=== PATIENT | female | born 1955 | race Caucasian/White ===

== ENCOUNTER 2019-05-22 12:03 | Observation (INO) ==
[2019-05-22] MEDS ORDERED: NORMAL SALINE 1,000 ML IV ONE (12:26)
[2019-05-22] MEDS ORDERED: PANTOPRAZOLE SODIUM 40 MG/100 ML PIGGYBACK IV ONE (12:27)
[2019-05-22] MEDS ORDERED: ONDANSETRON HCL/PF 2 MG/ML VIAL IV ONE (12:27)
--- NOTE | 2019-05-22 12:34 | ERNOTE ---
Abdominal HPI - Narrative Date of Service: 05/22/19 - General Chief Complaint: Abdominal Pain Time Seen by Provider: 05/22/19 12:20 Source: patient, family Exam Limitations: no limitations - Immun/Allergies/Home Medications Immunizatons: IMMUNIZATION HX Immunizations Up to Date Yes History of Influenza Vaccine No Hx Pneumococcal Vaccination No Allergies/Adverse Reactions: Allergies No Known Allergies Allergy (Verified 05/22/19 12:12) Home Medications: HOME MEDICATIONS Aspirin 81 mg PO DAILY 03/07/18 [Last Taken Unknown] Atorvastatin Calcium 40 mg PO HS 03/07/18 [Last Taken Unknown] Metoprolol Succinate 25 mg PO DAILY 03/07/18 [Last Taken Unknown] - History of Present Illness Narrative: patient presents to ed with c/o acute onset this am of epigastric and upper left quadrant pain, has had episodes of this in past but usually lasts only a few minutes Timing: intermittent Quality: moderate, sharpness Activities at Onset: none Modifying Factors - (Improves): Present: other - nothing Modifying Factors - (Worsens): Present: other - nothing Associated Symptoms: Present: nausea, vomiting, loss of appetite Prior Abdominal Problems: Present: similar symptoms Review of Systems - Review of Systems Constitutional: Present: See HPI EYE: Present: no symptoms reported ENT: Present: no symptoms reported Respiratory: Present: no symptoms reported Cardiology: Present: no symptoms reported Gastrointestinal/Abdominal: Present: See HPI, nausea, abdominal pain, eating less, drinking less Genitourinary: Present: no symptoms reported Musculoskeletal: Present: no symptoms reported Skin: Present: no symptoms reported Neurological: Present: no symptoms reported Endocrine: Present: no symptoms reported Hematologic/Lymphatic: Present: no symptoms reported Psych: Present: no symptoms reported All Other Systems: All systems neg except as marked Medical History (Last Reviewed 05/22/19 @ 12:13 by Carline Comer RN) HLD (hyperlipidemia) HTN (hypertension) Surgical History: Surgical History (Last Updated 05/22/19 @ 12:31 by Judy Campos RN) H/O heart artery stent dr lowe Hx of tubal ligation Family History: Family History (Last Updated 05/22/19 @ 12:32 by Judy Campos RN) Other No pertinent family history Social History: (Last Updated 05/22/19 @ 12:13 by Carline Comer RN) Tobacco: Smoking Status: Never smoker Alcohol: alcohol intake: current alcohol intake frequency: holiday/special occasion Substance Use: substance use type: does not use Physical Exam - Physical Exam General Appearance: Present: moderate distress, anxious Head Exam: Present: normal inspection, no evidence of injury Eye Exam: Normal inspection: bilateral, PERRL: bilateral, EOMI: bilateral Ears, Nose, Throat: Present: normal ENT inspection, normal pharynx Neck: Present: normal inspection, nontender Respiratory: Present: no respiratory distress, normal breath sounds, no accessory muscle use, chest nontender, lungs clear Cardiovascular/Chest: Present: regular rate, rhythm, no murmur, normal periph eral pulses Gastrointestinal/Abdominal: Present: normal bowel sounds, tenderness, distended, other - tenderness most noted in upper left quadrant and epigastric region Back Exam: Present: normal inspection, normal range of motion, no CVA tenderness, no vertebral tenderness Extremity Exam: Present: normal inspection, non-tender, normal range of motion, no edema Neurological Exam: Present: alert, oriented, normal mood/affect, no motor/sensory deficits Skin Exam: Present: normal color, warm/dry Lymphatic Exam: Present: no adenopathy Progress - Date and Time Seen: Date and Time: 05/22/19 17:46 patient unchanged, case discussed with patient and dr rueda who evaluates patient to go to surgery for repair of incarcerated ventral hernia - Results and Orders Patient's Lab Results:: I have reviewed the patient's lab results. - Vital Signs Patient's Vital Signs:: I have reviewed the patient's vital signs. Vital Signs: Vital Signs 05/22/19 12:08 Temperature 35.9 C L Pulse Rate 86 Respiratory Rate 20 Blood Pressure 142/70 O2 Sat by Pulse Oximetry 93 - X-Ray X-Ray #1 X-Ray: abdomen Interpretation: Discd w/ radiologist - non specific bowel gas [id number], suspect bowel obstruction - CT/Ultrasound CT/Ultrasound Narrative: incarcerated ventral hernia - Progress/Reassessment Chief Complaint: Abdominal Pain Progress:: Unchanged - Transfer of Care Expected Disposition: Admit Plan - Plan Plan: to admit and go to surgery Departure Clinical Impression: Ventral hernia with bowel obstruction - Departure Disposition: Short Term Hospital Inpatient Condition: Serious
[2019-05-22 12:41] LABS: Hematocrit 38.5 % (37.0-47.0); Mean Cell Volume 91.4 fl (78-100); Mean Corpuscular Hemoglobin 30.9 pg (27-31); Mean Corpuscular Hgb Conc 33.8 g/dl (32-36); Mean Platelet Volume 9.9 fl (8-12.5); Neutrophil # 3.9 K/mm3 (1.3-6.0); Neutrophil % 66.1 % (42-75.0); Platelet Count 303 K/mm3 (150-450); Red Blood Count 4.21 M/mm3 (4.2-5.4)
[2019-05-22] MEDS: MORPHINE SULFATE 4 MG/ML SYRG IV ONE ×2 (12:44→13:01)
[2019-05-22 12:53] LABS: Anion Gap 12.3 mmol/L (6.8-13.8); BUN/Creatinine Ratio 15.8 (9.0-21.6); Bilirubin, Total 0.7 mg/dL (0.0-1.1); Calcium * 9.3 mg/dL (7.9-10.9); Carbon Dioxide 24.8 mmol/L (24-32.6); Potassium 4.1 mmol/L (3.4-4.6); Total Protein 7.2 gm/dL (6.2-8.2)
[2019-05-22] MEDS ORDERED: DIATRIZOATE MEGLUMINE, SODIUM 30 ML BTL PO ONE (13:58)
[2019-05-22 14:43] LABS: Urine Bilirubin Negative (NEGATIVE); Urine Blood Negative /ul (NEGATIVE); Urine Ketone Negative (NEGATIVE); Urine Nitrite Negative (NEGATIVE); Urine Protein Negative (NEGATIVE); Urine Urobilinogen Normal (NORMAL); Urine pH 5.5 pH (5.0-7.0)
[2019-05-22 14:53] LABS: Urine Appearance Slightly Cloudy (CLEAR); Urine Bacteria 1+; Urine Color Yellow; Urine RBC None Seen /hpf (0-5); Urine WBC 0-5 /hpf (0-5)
[2019-05-22] MEDS ORDERED: MORPHINE SULFATE 4 MG/ML SYRG IV ONE (16:37)
[2019-05-22] MEDS ORDERED: BUPIVACAINE HCL/EPINEPHRINE 50 ML VIAL ONE (17:45)
[2019-05-22] MEDS ORDERED: fentaNYL CITRATE/PF 50 MCG/ML AMPUL ONE (18:16)
[2019-05-22] MEDS ORDERED: ONDANSETRON HCL/PF 2 MG/ML VIAL ONE (18:16)
[2019-05-22] MEDS ORDERED: KETOROLAC TROMETHAMINE 30 MG/ML VIAL ONE (18:16)
[2019-05-22] MEDS ORDERED: PROPOFOL VIAL IV ONE (18:17)
[2019-05-22] MEDS ORDERED: SUCCINYLCHOLINE CHLORIDE 20 MG/ML VIAL ONE (18:17)
--- NOTE | 2019-05-22 18:17 | HP ---
Chief Complaint - Chief Complaint Date of Service: 05/22/19 Time of Service: 18:00 Chief Complaint: abdominal pain History of Present Illness: At 10:15 this AM she had sudden onset of sharp pain in the upper middle abdomen. She was found to have a ventral hernia containing a loop of smalll bowel. She has normal WBC. She had a BM yesterday but no flatus today. The hernia is tender and not reducible. Medical History (Last Reviewed 05/22/19 @ 18:03 by London Etienne MD) HLD (hyperlipidemia) HTN (hypertension) Surgical History: Surgical History (Last Reviewed 05/22/19 @ 18:03 by London Etienne MD) H/O heart artery stent dr lowe Hx of tubal ligation Family History: Family History (Last Reviewed 05/22/19 @ 18:03 by London Etienne MD) Other No pertinent family history Social History: (Last Reviewed 05/22/19 @ 18:03 by London Etienne MD) Tobacco: Smoking Status: Never smoker Alcohol: alcohol intake: current alcohol intake frequency: holiday/special occasion Substance Use: substance use type: does not use Review Of Systems (GEN) - Review of Systems Generalized/Overall Review: Present: No Symptoms Reported. Absent: Chills, Fever EENTM: Absent: No Symptoms Reported Respiratory: Present: Other - snores and wakes up with it. Absent: Cough, Shortness of Breath Cardiac: Present: Other - Just saw Dr Lowe [place] for a year. Had stent about 10 yrs ago---had chest pain then but none since.. Absent: Chest Pain, Edema, Palpitations Abdominal: Present: Abdominal Pain Genitourinary: Present: Dribbling - wears a pad, Other - nocturia x 1. Absent: Dysuria Musculoskeletal: Present: No Symptoms Reported Neurological: Present: No Symptoms Reported Skin: Present: No Symptoms Reported Endocrine: Present: No Symptoms Reported Additional Comments: She has anxiety and occasional panic attacks/night terrors Immunizations: IMMUNIZATION HX Immunizations Up to Date Yes History of Influenza Vaccine No Hx Pneumococcal Vaccination No Allergies/Adverse Reactions: Allergies Allergy/AdvReac Type Severity Reaction Status Date / Time No Known Allergies Allergy Verified 05/22/19 12:12 Home Medications: HOME MEDICATIONS Aspirin 81 mg PO DAILY 03/07/18 [Last Taken Unknown] Atorvastatin Calcium 40 mg PO HS 03/07/18 [Last Taken Unknown] Metoprolol Succinate 25 mg PO DAILY 03/07/18 [Last Taken Unknown] Exam - Exam Vital Signs: Vital Signs - Last Taken Temp 35.9 C L 05/22/19 12:08 Pulse 75 05/22/19 17:44 Resp 12 05/22/19 17:44 BP 156/81 H 05/22/19 17:44 Pulse Ox 97 05/22/19 17:44 Constitutional: Present: Alert, Oriented x3, Cooperative, Mild distress, Obese ENT Exam: Present: normal ENT inspection, other - Upper dental appliance, Mallampati 3 airway Neck: Present: non-tender, full range of motion, trachea midline, other - short thick neck Back Exam: Present: no CVA tenderness Breasts: Present: Exam deferred Respiratory: Present: normal breath sounds Cardiovascular/Chest: Present: normal peripheral pulses, regular rate, rhythm, no murmur Abdomen: Present: soft, other - incarcerated ventral (epigastric) hernia. Absent: guarding, rigidity /Rectal: Present: Exam deferred Extremity: Present: normal range of motion, normal inspection, no pedal edema, no calf tenderness Skin Exam: Present: normal color, warm/dry Neurologic: Present: professional healthcare representative II-XII nml as tested, normal cerebellar test, alert, normal mood/affect, oriented x 3 Appearance: Present: appropriate appearance, appropriate insight, neat Eye contact: Present: cooperative, good eye contact, normal speech Thoughts: Present: normal thought pattern Diagnostic Studies: Abnormal Lab Results 05/22/19 05/22/19 05/22/19 Range/Units 12:35 12:35 14:39 Basophils % 1.2 H (0.0-1.0) % Est GFR (Non-Af Amer) 51 L (60-130) mL/min ALT 15 L (19-67) U/L Ur Leukocyte Esterase 75 H (NEGATIVE) /ul Urine Bacteria 1+ H (NONE) Laboratory Results WBC 6.0 K/mm3 (4.0-10.5) 05/22/19 12:35 RBC 4.21 M/mm3 (4.2-5.4) 05/22/19 12:35 Hgb 13.0 gm/dL (12.5-16.0) 05/22/19 12:35 Hct 38.5 % (37.0-47.0) 05/22/19 12:35 MCV 91.4 fl (78-100) 05/22/19 12:35 MCH 30.9 pg (27-31) 05/22/19 12:35 MCHC 33.8 g/dl (32-36) 05/22/19 12:35 RDW 13.0 % (11.5-14.0) 05/22/19 12:35 Plt Count 303 K/mm3 (150-450) 05/22/19 12:35 MPV 9.9 fl (8-12.5) 05/22/19 12:35 Immature Gran % (Auto) 0.20 % (0.001-0.429) 05/22/19 12:35 Immature Gran # (Auto) 0.01 K/mm3 (0.000-0.0310) 05/22/19 12:35 Neutrophils % 66.1 % (42-75.0) 05/22/19 12:35 Lymphocytes % 25.8 % (20-51) 05/22/19 12:35 Monocytes % 5.4 % (0.0-9) 05/22/19 12:35 Eosinophils % 1.3 % (0.0-3.0) 05/22/19 12:35 Basophils % 1.2 % (0.0-1.0) H 05/22/19 12:35 Nucleated RBC % 0.0 k/mm3 (0-1) 05/22/19 12:35 Neutrophils # 3.9 K/mm3 (1.3-6.0) 05/22/19 12:35 Lymphocytes # 1.54 k/mm3 (1.5-3.5) 05/22/19 12:35 Monocytes # 0.3 k/mm3 (0.0-1.0) 05/22/19 12:35 Eosinophils # 0.1 k/mm3 (0.0-0.7) 05/22/19 12:35 Absolute Basophils 0.1 k/mm3 (0.0-0.1) 05/22/19 12:35 Sodium 136 mmol/L (132-142) 05/22/19 12:35 Plasma Sodium 136 mmol/L (130-142) 05/22/19 12:35 Potassium 4.1 mmol/L (3.4-4.6) 05/22/19 12:35 Chloride 103 mmol/L (97-106) 05/22/19 12:35 Carbon Dioxide 24.8 mmol/L (24-32.6) 05/22/19 12:35 Anion Gap 12.3 mmol/L (6.8-13.8) 05/22/19 12:35 BUN 18 mg/dL (3-23) 05/22/19 12:35 Creatinine 1.14 mg/dL (0.4-1.4) 05/22/19 12:35 Est GFR (Non-Af Amer) 51 mL/min (60-130) L 05/22/19 12:35 BUN/Creatinine Ratio 15.8 (9.0-21.6) 05/22/19 12:35 Random Glucose 101 mg/dL (70-110) 05/22/19 12:35 Calcium 9.3 mg/dL (7.9-10.9) 05/22/19 12:35 Calcium Adj for Albumin 9.0 mg/dL (8.4-10.2) 05/22/19 12:35 Total Bilirubin 0.7 mg/dL (0.0-1.1) 05/22/19 12:35 AST 16 U/L (0-48) 05/22/19 12:35 ALT 15 U/L (19-67) L 05/22/19 12:35 Alkaline Phosphatase 109 U/L (50-170) 05/22/19 12:35 Total Protein 7.2 gm/dL (6.2-8.2) 05/22/19 12:35 Albumin 4.0 gm/dl (3.4-5.0) 05/22/19 12:35 Amylase 67 U/L (25-115) 05/22/19 12:35 Lipase 201 U/L (73-393) 05/22/19 12:35 Urine Color Yellow 05/22/19 14:39 Urine Appearance Slightly cloudy (CLEAR) 05/22/19 14:39 Urine pH 5.5 pH (5.0-7.0) 05/22/19 14:39 Ur Specific [place] 1.010 SP.GR. (1.005-1.010) 05/22/19 14:39 Urine Protein Negative mg/dL (NEGATIVE) 05/22/19 14:39 Urine Glucose (UA) Negative mg/dL (NEGATIVE) 05/22/19 14:39 Urine Ketones Negative mg/dL (NEGATIVE) 05/22/19 14:39 Urine Blood Negative /ul (NEGATIVE) 05/22/19 14:39 Urine Nitrate Negative (NEGATIVE) 05/22/19 14:39 Urine Bilirubin Negative mg/dl (NEGATIVE) 05/22/19 14:39 Urine Urobilinogen Normal EU/dl (NORMAL) 05/22/19 14:39 Ur Leukocyte Esterase 75 /ul (NEGATIVE) H 05/22/19 14:39 Urine RBC None seen /hpf (0-5) 05/22/19 14:39 Urine WBC 0-5 /hpf (0-5) 05/22/19 14:39 Ur Epithelial Cells Trace /hpf (0-5) 05/22/19 14:39 Urine Bacteria 1+ (NONE) H 05/22/19 14:39 Urine Culture Comments Culture to follow 05/22/19 14:39 CT shows ventral hernia containing small bowel Assessment/Plan - Assessment/Plan (1) Ventral hernia with bowel obstruction Assessment: Explained hernia and why she needs an operation because it is not reducible. Risks, complications explained as well as expected post-op course. Also discussed possible need to deal with bowel embarrassment if present (although lab normal). After an interactive discussion, her and her "s questions were answered to their apparent satisfaction and informed consent for repair of ventral hernia with mesh was obtained. SCD's & early ambulation, IV ancef, chlorhexidine wipes unavailable. Problem: Acute
--- NOTE | 2019-05-22 18:29 | ANES ---
Anesthesia Pre Procedure Eval Vitals/Labs: Last Vital Signs Temp 35.9 C L 05/22/19 12:08 Pulse 75 05/22/19 17:44 Resp 12 05/22/19 17:44 BP 156/81 H 05/22/19 17:44 Pulse Ox 97 05/22/19 17:44 HOME MEDICATIONS Aspirin 81 mg PO DAILY 03/07/18 [Last Taken Unknown] Atorvastatin Calcium 40 mg PO HS 03/07/18 [Last Taken Unknown] Metoprolol Succinate 25 mg PO DAILY 03/07/18 [Last Taken Unknown] Allergies/Adverse Reactions: Allergies Allergy/AdvReac Type Severity Reaction Status Date / Time No Known Allergies Allergy Verified 05/22/19 12:12 - Planned Procedure Planned Procedure: left side abd pain Medication List Reviewed:: Yes Allergies Verified: Yes Medical History (Last Reviewed 05/22/19 @ 18:28 by Jay Blum CRNA) HLD (hyperlipidemia) HTN (hypertension) Surgical History (Last Reviewed 05/22/19 @ 18:28 by Jay Blum CRNA) H/O heart artery stent dr lowe Hx of tubal ligation Family History (Last Reviewed 05/22/19 @ 18:28 by Jay Blum CRNA) Other No pertinent family history - Family Anesthesia History Family History:: no untoward family reactions to anesthesia - Airway/Neck/Teeth Teeth Condition: intact Denture Type: Perm crown/bridge Neck Exam: full range of motion Mallampatti Score: 2 Thyromental (T-M) distance: > 6 cm Mandibulo Hyoid distance: > 3 cm - Respiratory Respiratory Physical: lungs clear Smoking Status: Never smoker Sleep Apnea currently treated: No Sleep Apnea by current assessment: No - Cardiovascular Cardiac History: CAD, hypertension, hyperlipidemia Tolerate Activity: Fair Heart Sounds: S1 & S2, Regular - Anesthesia Assessment and Plan ASA Class: PS, III Anesthesia Type Plan: General ET Planned difficult intubation/equipment available: No
[2019-05-22] MEDS ORDERED: ceFAZolin SODIUM/DEXTROSE,ISO 2 GM/50 ML BAG IV PRN (18:30)
[2019-05-22] MEDS ORDERED: NEOSTIGMINE METHYLSULFATE 1 MG/ML VIAL ONE (18:34)
[2019-05-22] MEDS ORDERED: GLYCOPYRROLATE 0.2 MG/ML VIAL ONE (18:35)
[2019-05-22] MEDS ORDERED: ROCURONIUM BROMIDE 10 MG/ML VIAL ONE (18:35)
[2019-05-22] MEDS: RINGER'S SOLUTION,LACTATED 1,000 ML IV PRN ×3 (18:35→20:37)
[2019-05-22] MEDS ORDERED: BUPIVACAINE HCL/EPINEPHRINE 50 ML VIAL IJ ONE (19:00)
[2019-05-22] MEDS ORDERED: MUPIROCIN 22 APPL TUBE TP ONE ×2 (19:55→19:57)
[2019-05-22] MEDS ORDERED: oxyCODONE HCL/ACETAMINOPHEN 1 TAB TABLET PO PRN (20:16)
[2019-05-22] MEDS ORDERED: RINGER'S SOLUTION,LACTATED 1,000 ML IV PRN (20:16)
[2019-05-22] MEDS ORDERED: ACETAMINOPHEN 325 MG TABLET PO PRN (20:16)
[2019-05-22] MEDS ORDERED: HYDROmorphone HCL 1 MG/ML DISP.SYRIN IV PRN (20:16)
--- NOTE | 2019-05-22 20:29 | ANES ---
Post Anesthesia Assessment - Vital Signs Vitals: Last Vital Signs Temp 36.4 C 05/22/19 20:20 Pulse 89 05/22/19 20:20 Resp 12 05/22/19 20:20 BP 155/87 H 05/22/19 20:20 Pulse Ox 98 05/22/19 20:20 Airway Patency: Normal - Mental Status Level Of Consciousness: Awake - Pain Level Pain Score: 2 - N/V Assessment Nausea/Vomiting Presence: None Dehydration:: No
--- NOTE | 2019-05-22 20:29 | ANES ---
Post Anesthesia Discharge - Transfer of Care Transfer of Care handoff given to nurse: Yes - Discharge from PACU Discharge from PACU when meets criteria: Yes
--- NOTE | 2019-05-22 20:40 | OR ---
Operative Report - Dictated Report Narrative: OPERATIVE REPORT DATE OF OPERATION: 05/22/2019 PREOPERATIVE DIAGNOSIS: Incarcerated ventral hernia POSTOPERATIVE DIAGNOSIS: Incarcerated ventral hernia containing small bowel and properitoneal fat OPERATION: Reduction and repair of incarcerated ventral hernia using medium ventralex patch SURGEON: London Etienne MD ANESTHESIA: General endotracheal (RSI) Ole Blum CRNA INDICATIONS FOR PROCEDURE: The patient is a 63-year-old female who had the sudde n onset of severe midline upper abdominal pain at 10:15 AM today. She presented to the emergency room where evaluation with CT scan showed an incarcerated ventral hernia containing small bowel. The hernia was not reducible and she is brought for reduction/repair FINDINGS: Incarcerated small bowel and properitoneal fat. Viable small intestine successfully reduced. 2 cm fascial defect repaired with a medium ventralex patch NARRATIVE OF PROCEDURE: The patient was identified preoperatively and prior to the administration of anesthetic a multidisciplinary timeout was observed. With the patient in the supine position, SCDs were applied, and 2 g of intravenous Ancef administered. Rapid sequence endotracheal intubation was performed and general anesthetic administered. The patient's abdomen was prepped with Betadine solution in the midline isolated with 4 sterile towels. The remainder the patient was covered with a sterile disposable drape. A 4 fingerbreadth skin incision was made. Dissection was carried through subcutaneous tissue with electrocautery until edematous herniated material was encountered. This was gradually dissected free from surrounding subcutaneous tissue and the fascial defect exposed. The herniated small bowel and herniated fat appeared viable. As the margins of the defect were being refreshed, the material spontaneously reduced. The edges of the defect were then outlined, a forefinger inserted, and the pro peritoneal space developed circumferentially sufficient to deploy a mesh patch. A medium ventralex patch was then introduced through the defect and unfurled circumferentially in the properitoneal space. The wings of the patch were brought through the defect and secured above and below with interrupted sutures of 0 Ethibond. The mesh was also secured to the defect circumferentially with interrupted sutures of 0 Ethibond. The repair was seen to be secure. The area appeared hemostatic, and after receiving a correct sponge needle instrument count attention was turned to closing the wound. The subcutaneous tissue was approximated over the mesh with 2 layers of interrupted sutures of 0 chromic. The skin was secured with jimmie. The operative site was washed and dried. A dressing of Bactroban ointment, Mepilex border, and Medipore tape was applied. The patient tolerated the anesthetic and procedure well without complication. There was no measurable blood loss. No specimen was submitted. 0.5% Marcaine with epinephrine was used for local anesthetic infiltration. The patient was transferred to the recovery room awake, e xtubated, and in stable condition. Plan at this time is to place the patient in observation bed. She will be maintained on O2 overnight with SCDs and early ambulation for VTE prophylaxis. Reviewed and electronically signed
[2019-05-22] MEDS ORDERED: PANTOPRAZOLE SODIUM 40 MG in NORMAL SALINE 100 ML IV ONE (21:17)
[2019-05-22] MEDS: ONDANSETRON HCL/PF 2 MG/ML VIAL IV PRN (21:34)
[2019-05-23] MEDS: ONDANSETRON HCL/PF 2 MG/ML VIAL IV PRN (02:15)
[2019-05-23] MEDS: RINGER'S SOLUTION,LACTATED 1,000 ML IV PRN (04:06)
[2019-05-23] MEDS ORDERED: BUPIVACAINE HCL/EPINEPHRINE 50 ML VIAL IJ PRN (06:00)
[2019-05-23] MEDS ORDERED: BISACODYL 5 MG TABLET.DR PO ONE (07:38)
[2019-05-23] MEDS ORDERED: CIPROFLOXACIN IN 5 % DEXTROSE 400 MG/200 ML BAG IV SCH (08:00)
[2019-05-23] MEDS ORDERED: METOCLOPRAMIDE HCL 5 MG/ML VIAL IV ONE (08:30)
[2019-05-23] MEDS ORDERED: METOPROLOL SUCCINATE 25 MG TABLET.SA PO SCH (09:00)
--- NOTE | 2019-05-23 17:07 | DS ---
(1) Ventral hernia with bowel obstruction Problem: Acute Date of Discharge:: 05/23/19 Description of Stay: She presented to the emergency room on 05/22/2019 with a short history of severe mid upper abdominal pain. She was found on CT scan to have an incarcerated ventral hernia containing small bowel. She underwent an open reduction/repair of incarcerated ventral hernia using a medium ventralex hernia patch. She received IV Ancef preoperatively. The bowel appeared viable. She was placed in an observation bed with SCDs and early ambulation for VTE prophylaxis. She was initially maintained on nasal cannula O2 due to desaturation from pain medication. Her vital signs remained normal, she had minimal discomfort, her dressing remained dry. She was able to ambulate without assistance. She had some initial nausea which resolved. She was able to tolerate an advanced diet and moved her bowels. She was successfully weaned from O2. Her urine from the emergency room grew greater than 100,000 colonies of a gram- negative elias and she was started on IV Cipro. She was discharged home with instructions to keep her current dressing dry and intact for another 48 hours. But then may change the dressing daily or as needed. She is not to lift and not to drive. She has phone numbers to call for questions or concerns. A prescription for Percocet 5/325 mg #6 and Cipro 500 mg p.o. twice daily #6 will be given. Return office appointment 05/30/2019 Procedures Performed: see notes below - Open reduction and repair of ventral incisional hernia using ventralex patch Results and Findings: Pending Mircobiology Results 05/22/19 14:39 Urine,Voided Urine Culture - Preliminary Gram Negative Bacilli Lab Pending Results 05/22/19 12:35: WBC 6.0, RBC 4.21, Hgb 13.0, Hct 38.5, MCV 91.4, MCH 30.9, MCHC 33.8, RDW 13.0, Plt Count 303, MPV 9.9, Immature Gran % (Auto) 0.20, Immature Gran # (Auto) 0.01, Neutrophils % 66.1, Lymphocytes % 25.8, Monocytes % 5.4, Eosinophils % 1.3, Basophils % 1.2 H, Nucleated RBC % 0.0, Neutrophils # 3.9, Lymphocytes # 1.54, Monocytes # 0.3, Eosinophils # 0.1, Absolute Basophils 0.1 05/22/19 12:35: Sodium 136, Plasma Sodium 136, Potassium 4.1, Chloride 103, Carbon Dioxide 24.8, Anion Gap 12.3, BUN 18, Creatinine 1.14, Est GFR (Non-Af Amer) 51 L, BUN/Creatinine Ratio 15.8, Random Glucose 101, Calcium 9.3, Calcium Adj for Albumin 9.0, Total Bilirubin 0.7, AST 16, ALT 15 L, Alkaline Phosphatase 109, Total Protein 7.2, Albumin 4.0, Amylase 67, Lipase 201 05/22/19 14:39: Urine Color Yellow, Urine Appearance Slightly cloudy, Urine pH 5.5, Ur Specific [place] 1.010, Urine Protein Negative, Urine Glucose (UA) Negative, Urine Ketones Negative, Urine Blood Negative, Urine Nitrate Negative, Urine Bilirubin Negative, Urine Urobilinogen Normal, Ur Leukocyte Esterase 75 H, Urine RBC None seen, Urine WBC 0-5, Ur Epithelial Cells Trace, Urine Bacteria 1+ H, Urine Culture Comments Culture to follow Discharge Location: Home Disposition: Home self-care Condition: Good Discharge Activity: Activity as tolerated, No Lifting Discharge Diet: General/regular food Problem Oriented Discharge Instructions to Patient/Family: Exploratory Laparotomy, Adult, Care After Additional Patient Instructions (free text): Follow up with Dr. Etienne on Sunday at 1:15 May: walk, climb steps, ride in a car. Resume usual diet May shower on Sunday change dressing DO NOT: lift over 10 lbs. Prescriptions (Any new or edited meds): Ciprofloxacin in 5 % Dextrose [Cipro] 500 mg PO Q12H 3 Days #6 tab Transmission Status: Sent to [place], [place] oxyCODONE HCL/ACETAMINOPHEN [Percocet 5 MG/325 MG] 1 tab PO Q4H PRN #6 tab PRN Reason: Moderate Pain (Pain Scale 4-6) Prescription Printed Complete Home Medications List: Complete Home Medication List: Aspirin 81 mg PO DAILY 03/07/18 Atorvastatin Calcium 40 mg PO HS 03/07/18 Metoprolol Succinate 25 mg PO DAILY 03/07/18 Ciprofloxacin in 5 % Dextrose [Cipro] 500 mg PO Q12H 3 Days #6 tab 05/23/19 oxyCODONE HCL/ACETAMINOPHEN [Percocet 5 MG/325 MG] 1 tab PO Q4H PRN #6 tab
[2019-05-23 17:33] VITALS: BP 142/85
== END 2019-05-23 17:35 | disposition home or self-care (01) ==
LOC: ER 12:03 → MS 18:05 → AMB 18:05
PROVIDERS: ADMIT Surgery; ATTEND Surgery
DX: K43.6 Other and unspecified ventral hernia with obstruction, without gangrene
CPT/HCPCS: 36415; 74019; 74020; 74177; 80053; 81001; 82150; 83690; 85025; 87086; 93005; 99285; C1781; G0378; J2405; Q9963; Q9967